=== PATIENT | male | born 1985 | race Caucasian/White ===

== ENCOUNTER 2020-04-07 07:59 | Emergency (ER) | payer SELFPAY ==
[~2020-04-07] VITALS: Ht 188 cm; Wt 107.2 kg
[2020-04-07] MEDS ORDERED: SODIUM CHLORIDE FLUSH 10ML SYR IVF ONE (08:30)
[2020-04-07] MEDS ORDERED: SODIUM CHLORIDE 0.9% 1,000ML IVBOLUS ONE (08:30)
[2020-04-07] MEDS ORDERED: ONDANSETRON 2MG/ML, 2ML IVPush ONE (08:30)
[2020-04-07] MEDS ORDERED: MORPHINE SULFATE 4 MG/ML, 1ML IVPush ONE (08:30)
[2020-04-07 08:45] LABS: BASOPHILS % (AUTO) 0 % (0-1); EOSINOPHILS % (AUTO) 0 % (1-7); LYMPHOCYTES % (AUTO) 14 % (22-44); MEAN CORPUSCULAR HEMOGLOBIN 31.3 pg (27.5-34.5); MEAN CORPUSCULAR HGB CONC 35.5 g/dL (33.2-36.2); MEAN PLATELET VOLUME 8.1 fL (7.4-10.4); MONOCYTES % (AUTO) 4 % (2-9); NEUTROPHILS % (AUTO) 82 % (42-75); PLATELET COUNT 289 x10^3/uL (130-400); RED BLOOD COUNT 4.93 x10^6/uL (4.38-5.82)
[2020-04-07 08:58] LABS: ALANINE AMINOTRANSFERASE 66 U/L (12-78); ALBUMIN 4.3 g/dL (3.4-5.0); ANION GAP 9 mmol/L (5-15); CALCIUM 9.5 mg/dL (8.5-10.1); CHLORIDE 111 mmol/L (98-107); CREATININE 1.12 mg/dL (0.7-1.3)
[2020-04-07 09:00] LABS: ALKALINE PHOSPHATASE 103 U/L (45-117); BILIRUBIN,TOTAL 0.7 mg/dL (0.2-1.0); TOTAL PROTEIN 7.3 g/dL (6.4-8.2)
[2020-04-07] MEDS ORDERED: ONDANSETRON ODT 8 MG ONE (09:05)
[2020-04-07] MEDS ORDERED: MORPHINE SULFATE 4 MG/ML, 1ML ONE (09:06)
[2020-04-07 09:16] LABS: MD NO
[2020-04-07 09:24] LABS: MICROSCOPIC NOT IND
[2020-04-07] MEDS ORDERED: ONDANSETRON ODT 8 MG PO ONE (09:30)
[2020-04-07] MEDS ORDERED: KETOROLAC 30 MG/1 ML ONE (09:43)
--- NOTE | 2020-04-07 09:59 | NUR ---
PT ROLLING AROUND IN THE BED. STATING PAIN IS FROM FLANK TO PENIS. 02/13. PA NOTIFIED.
[2020-04-07] MEDS ORDERED: KETOROLAC 30 MG/1 ML IM ONE (10:00)
--- NOTE | 2020-04-07 11:20 | NUR ---
updated pt on plan of care
[2020-04-07] MEDS ORDERED: AZITHROMYCIN 500 MG TABLET PO ONE (11:30)
[2020-04-07] MEDS ORDERED: CEFTRIAXONE 1,000 MG IM ONE (11:30)
[2020-04-07] MEDS ORDERED: HYDROcodone/APAP 5/325 TABLET ONE (11:37)
[2020-04-07] MEDS ORDERED: CYCLOBENZAPRINE 10 MG TABLET ONE (11:37)
[2020-04-07] MEDS ORDERED: CEFTRIAXONE 250 MG ONE (11:37)
[2020-04-07] MEDS ORDERED: AZITHROMYCIN 250 MG TABLET ONE (11:37)
[2020-04-07] MEDS ORDERED: CEFTRIAXONE 1,000 MG ONE (11:44)
[2020-04-07 11:59] VITALS: BP 142/72
[2020-04-07] MEDS ORDERED: CYCLOBENZAPRINE 10 MG TABLET PO ONE (12:00)
[2020-04-07] MEDS ORDERED: HYDROcodone/APAP 5/325 TABLET PO ONE (12:00)
== END 2020-04-07 12:08 | disposition home or self-care (01) ==
LOC: ED 11:38
DX: S39.012A Strain of muscle, fascia and tendon of lower back, initial encounter (principal); Z20.828 Contact with and (suspected) exposure to other viral communicable diseases; R10.84 Generalized abdominal pain; R11.2 Nausea with vomiting, unspecified; R19.7 Diarrhea, unspecified; Z90.49 Acquired absence of other specified parts of digestive tract; X58.XXXA Exposure to other specified factors, initial encounter; Y93.89 Activity, other specified; Y92.89 Other specified places as the place of occurrence of the external cause; Y99.8 Other external cause status
CPT/HCPCS: 36415; 74022; 74176; 80053; 81003; 83690; 85025; 87491; 87591; 87635; 96361; 96372; 96374; 99285; J0696; J1885; J2270; J7030; Q0162